=== PATIENT | female | born 1965 | race Caucasian/White ===

== ENCOUNTER 2017-03-24 10:37 | Emergency (ER) | payer BC ==
[~2017-03-24] VITALS: Ht 162.6 cm; Wt 59.7 kg
[2017-03-24 10:52] VITALS: TEMP 36.5; Ht 162.6 cm; Wt 59.7 kg
[2017-03-24] MEDS ORDERED: OXYCODONE/ACETAMINOPHEN 5-325 TAB PO STA (11:37)
--- NOTE | 2017-03-24 11:48 | EMERGENCY ROOM VISIT NOTE ---
History First contact with patient: 11:30 Chief Complaint: FALL Stated Complaint: FELL, RIB AND L ARM PAIN History of Present Illness The patient is a 51 year old female who presents to the Emergency Room with complaints of severe pain in her left arm and left ribs after sustaining a fall last night. She reports tripping and falling and landing on her left side. She has not taken anything for pain. She denies any shortness of breath. She denies hitting her head. She denies any abdominal pain. Review of Systems 6 system review negative. Please see pertinent positives in the history of present illness section. Past Medical/Surgical History Otherwise healthy Social History Smoking Status: Current Every Day Smoker Marital Status: Housing Status: lives with significant other Current/Historical Medications Scheduled PRN Oxycodone/Acetaminophen 5MG/325MG (Percocet 5MG/325MG), 1-2 TABS PO Q4H PRN for Pain Physical Exam Vital Signs Date Time Temp Pulse Resp B/P (MAP) Pulse Ox O2 Delivery O2 Flow Rate FiO2 03/24/17 14:52 96 160/102 97 Room Air 03/24/17 13:01 71 131/82 95 03/24/17 11:46 76 133/88 96 Room Air 03/24/17 10:52 36.5 110 18 106/77 97 Room Air Physical Exam Exam is limited secondary to pain VITALS: Vitals are noted on the nurse's note and reviewed by myself. Vital signs stable. GENERAL: 51-year-old female, in obvious discomfort, odor of alcohol noted., SKIN: The skin was intact HEAD: Normocephalic atraumatic. NECK: Supple without nuchal rigidity. No JVD. HEART: Regular rate and rhythm without murmurs gallops or rubs. LUNGS: Clear to auscultation bilaterally without wheezes, rales or rhonchi. No accessory muscle use. THORAX: It tenderness to palpation over the left lateral ribs. ABDOMEN: Positive bowel sounds x 4.Soft, nontender, without organomegaly. No guarding or rebound tenderness. MUSCULOSKELETAL: LUE: Significant ecchymosis noted over the left bicep. Tenderness to palpation over the lateral aspect of the shoulder. No tenderness over the clavicle. Range of motion of the shoulder severely limited secondary to pain. No tenderness over the wrist or forearm. Distal pulses intact.. NEURO: Patient was alert and oriented to person place and time. Normal sensation to touch. No focal neurological deficits. Medical Decision & Procedures ER Provider Diagnostic Interpretation: Shoulder x-ray IMPRESSION: Comminuted minimally displaced fracture of the surgical neck of the humerus with prominent involvement of the greater tuberosity. Ribs x-ray IMPRESSION: 1. Acute fractures of the posterior lateral left fifth through seventh ribs. The left seventh rib fracture may be segmental. 2. No acute cardiomediastinal disease. Humerus x-ray IMPRESSION: Comminuted minimally displaced fracture of the surgical neck of the humerus. Elbow x-ray IMPRESSION: Allowing for limited radiographs, no acute osseous injury of the elbow. Medications Administered Medications (Trade) Dose Ordered Sig/Michael Route Start Time Stop Time Status Last Admin Dose Admin Oxycodone/ Acetaminophen (Percocet 5-325mg Tab) 2 tab NOW STAT PO 03/24/17 11:37 03/24/17 11:38 DC 03/24/17 11:45 2 TAB ED Course The patient was seen and examined She was given 2 Percocet for pain Imaging was performed and reviewed The findings were discussed with the patient The findings were also discussed with Dr. Nagy from orthopedics. The patient was put in a sling She was given CDs of her imaging Discharge instructions were reviewed, and the patient was discharged in good condition Medical Decision Differential diagnosis: Fracture, bicep rupture, pneumothorax This patient is a 51-year-old female that presented to the emergency department with severe pain in her left arm and left rib pain. She sustained a fall last night. The patient did have a humerus fracture. She also fractured multiple ribs. There are no signs of pneumothorax. She is not short of breath. She had good pain control in the emergency department. The case was discussed with orthopedics. She was put in a sling. The patient is from [place], and wishes to follow-up with orthopedics when she gets home. This seems reasonable. The patient was discharged with copies of her imaging. She was given a short prescription of narcotics. She agrees to return to the emergency department immediately with any worsening symptoms especially shortness of breath. This chart was completed in part utilizing [employer] Voice Recognition software. Attempts were made to minimize the grammatical errors, random word insertions, pronoun errors and incomplete sentences. Any formal questions or concerns about the content, text or information contained within the body of this dictation should be directly addressed to the provider for clarification. Blood Pressure Screening Patient's blood pressure: Normal blood pressure Impression Primary Impression: Humerus fracture Additional Impression: Multiple rib fractures Departure Information Dispostion Discharge/Transfer to [facility] Hosp Condition FAIR Prescriptions Oxycodone/Acetaminophen 5MG/325MG (PERCOCET 5MG/325MG) Tab 1-2 TABS PO Q4H Y for Pain, #24 TAB For Initial Treatment Prov: Milana Vera PA-C 03/24/17 Referrals No Doctor, Assigned (PCP) Patient Instructions ED Fx Shoulder, My [facility] Additional Instructions You had been seen in the hospital with left arm pain and left rib pain. You have a fracture in the left humerus (shoulder) in addition to rib fractures of the fifth, sixth and seventh rib Please rest the arm in a sling until you follow up with the orthopedic doctor. Please call tomorrow morning for a follow-up appointment. Ideally, you should see the orthopedic doctor within the next 2-3 days. Apply ice for 20 minute intervals. To the affected areas. Ibuprofen 600 mg every 6 hours Percocet 1-2 tabs every 4 hours for severe pain. Do not drink alcohol or drive while taking this medication. This may be taken with ibuprofen, but avoid Tylenol. This medication may cause constipation. I recommend a stool sample while taking it Return immediately to the emergency department with any severe, worsening pain particularly in the ribs or difficulty breathing. Problem Qualifiers
--- NOTE | 2017-03-24 14:10 | DIAGNOSTIC IMAGING REPORT ---
L HUMERUS MIN 2 VIEWS ROUTINE CLINICAL HISTORY: 51 years-old Female presenting with Fall. TECHNIQUE: Frontal and lateral views left humerus were obtained. COMPARISON: None. FINDINGS: Comminuted fracture of the surgical humeral neck involving the greater tuberosity. No significant angulation. 4 mm of displacement of the greater tuberosity. Recommendation is greatest at this site. Glenohumeral joint remains congruent. IMPRESSION: Comminuted minimally displaced fracture of the surgical neck of the humerus. Electronically signed by: Rj Mccann M.D. 03/24/2017 2:08 PM Dictated Date/Time: 03/24/2017 2:07 PM
--- NOTE | 2017-03-24 14:12 | DIAGNOSTIC IMAGING REPORT ---
L RIBS UNILATERAL WITH PA CHEST CLINICAL HISTORY: 51 years-old Female presenting with Fall. TECHNIQUE: Frontal and oblique views of the left ribs were obtained as well as PA view of the chest. COMPARISON: None. FINDINGS: Cortical irregularity of the posterior lateral left fifth, sixth, and seventh ribs. Fracture of the seventh rib may be segmental. Cardiomediastinal silhouette normal. Lungs and pleural spaces clear. Upper abdomen normal. IMPRESSION: 1. Acute fractures of the posterior lateral left fifth through seventh ribs. The left seventh rib fracture may be segmental. 2. No acute cardiomediastinal disease. Electronically signed by: Rj Mccann M.D. 03/24/2017 2:11 PM Dictated Date/Time: 03/24/2017 2:08 PM
--- NOTE | 2017-03-24 14:13 | DIAGNOSTIC IMAGING REPORT ---
L ELBOW MIN 3 VIEWS ROUTINE CLINICAL HISTORY: 51 years-old Female presenting with fall. TECHNIQUE: Frontal and lateral views of the left elbow were obtained. COMPARISON: None. FINDINGS: Osteophytosis noted along the lateral upper condyle. Elbow joint congruent. No gross evidence of an elbow joint effusion allowing for suboptimal positioning. No acute fracture. IMPRESSION: Allowing for limited radiographs, no acute osseous injury of the elbow. Electronically signed by: Rj Mccann M.D. 03/24/2017 2:12 PM Dictated Date/Time: 03/24/2017 2:11 PM
--- NOTE | 2017-03-24 14:15 | DIAGNOSTIC IMAGING REPORT ---
L SHOULDER MIN 2 VIEWS ROUTINE CLINICAL HISTORY: 51 years-old Female presenting with Fall. TECHNIQUE: Internal rotation and transscapular Y views of the left shoulder were obtained. COMPARISON: None. FINDINGS: Comminuted mildly displaced fracture of the surgical neck and greater tuberosity of the humerus. The humeral head remains congruent on the osseous glenoid. No significant angulation. IMPRESSION: Comminuted minimally displaced fracture of the surgical neck of the humerus with prominent involvement of the greater tuberosity. Electronically signed by: Rj Mccann M.D. 03/24/2017 2:13 PM Dictated Date/Time: 03/24/2017 2:12 PM
[2017-03-24] MEDS ORDERED: OXYC-57 PO (14:48)
[2017-03-24 14:52] VITALS: BP 160/102; PULSE 96; O2SAT 97
== END 2017-03-24 15:24 | disposition home or self-care (01) ==
LOC: C.EDB 10:38 → C.EDC 15:24
DX: S22.42XA Multiple fractures of ribs, left side, initial encounter for closed fracture (principal); S42.302A Unspecified fracture of shaft of humerus, left arm, initial encounter for closed fracture; W01.0XXA Fall on same level from slipping, tripping and stumbling without subsequent striking against object, initial encounter; F17.200 Nicotine dependence, unspecified, uncomplicated